=== PATIENT | male | born 1975 | race African-American/Black ===

== ENCOUNTER 2018-07-26 12:42 | Inpatient (IN) | payer OTHER ==
[2018-07-26 13:57] VITALS: BMI 29.2
--- NOTE | 2018-07-26 17:58 | HP ---
"CIWA Score Nausea/Vomitin-Mild Nausea/No Vomiting Muscle Tremors: 4-Moderate,w/Arms Extend Anxiety: 4-Mod. Anxious/Guarded Agitation: 1-Slight > Activity Paroxysmal Sweats: 3 (Increased facial moisture) Orientation: 2-Disoriented Date<2 days Tacttile Disturbances: 0-None Auditory Disturbances: 0-None Visual Disturbances: 0-None Headache: 0-None Present CIWA-Ar Total Score: 15 - Admission Criteria [facility]AS[facility] Guidelines: Admission for Medically Managed Detox: Requires at least one of the followin. CIWA greater than 12 2. Seizures within the past 24 hours 3. Delirium tremens within the past 24 hours 4. Hallucinations within the past 24 hours 5. Acute intervention needed for co occurring medical disorder 6. Acute intervention needed for co occurring psychiatric disorder 7. Severe withdrawal that cannot be handled at a lower level of care (continued vomiting, continued diarrhea, abnormal vital signs) requiring intravenous medication and/or fluids 8. Patient presents the following: CIWA greater than 12 Admission Criteria Met: Admission criteria met Admission ROS [facility] - [facility] Chief Complaint: Alcohol withdrawal. Allergies/Adverse Reactions: Allergies Allergy/AdvReac Type Severity Reaction Status Date / Time shellfish derived Allergy Severe Swelling Verified 07/26/18 16:52 No Known Drug Allergies Allergy Verified 07/26/18 18:48 History of Present Illness: Here for detox from alcohol. Nicotine use began at age 16 - stopped 13 months ago. Alcohol use began at age 16. Cocaine use began at age 16. Marijuana use began at age 16. Hx. Blackouts - last 1 week ago. Denies hx seizures/overdoses. Longest length of sobriety 8 years associated w/ meetings. Hx HTN was on Lisinopril but stopped several months ago, on own. Encouraged to f/u w/ PCP post discharge and share copies of reports form this admission. Intermittent weakness and numbness in both arms and hands for several months. MH: Denies depression, thoughts of harming self or others. Search Terms: [address], 1975 Search Date: 07/26/2018 05:51:36 PM The Drug Utilization Report below displays all of the controlled substance prescriptions, if any, that your patient has filled in the last twelve months. The information displayed on this report is compiled from pharmacy submissions to the Department, and accurately reflects the information as submitted by the pharmacies. This report was requested by: Chen Alvarez | Reference #: [id number] There are no results for the search terms that you entered. Exam Limitations: No Limitations - Ebola screening Have you traveled outside of the country in the last 21 days: No Have you had contact with anyone from an Ebola affected area: No Have you been sick,other than usual withdrawal symptoms: No Do you have a fever: No - Review of Systems Constitutional: Diaphoresis (Increased facial moisture), Changes in sleep ( Difficulty falling and staying asleep w/ nightmares) EENT: reports: No Symptoms Reported Respiratory: reports: No Symptoms reported Cardiac: reports: No Symptoms Reported GI: reports: Nausea, Indigestion (acid reflux - otc rolaids) : reports: No Symptoms Reported Musculoskeletal: reports: No Symptoms Reported Integumentary: reports: Other (athlete's foot) Neuro: reports: Tremors Endocrine: reports: Increased Thirst Hematology: reports: No Symptoms Reported Psychiatric: reports: Judgement Intact, Agitated, Anxious, other (Knows nmoth and year, off date by 3 days) Patient History - Patient Medical History Hx Asthma: No Hx Chronic Obstructive Pulmonary Disease (COPD): No Hx Cardiac Disorders: No Hx Hypertension: Yes (not on meds.) HX Cerebrovascular Accident: No Hx Seizures: No Hx Diabetes: No Hx Gastrointestinal Disorders: No Hx Genitourinary Disorders: No Hx Sexually Transmitted Disorders: No Hx Renal Disease (ESRD): No Hx Human Immunodeficiency Virus (HIV): No (Neg - 2018) Hx Depression: No Hx Suicide Attempt: No Hx Schizophrenia: No - Patient Surgical History Past Surgical History: No - PPD History Previous Implant?: Yes Documented Results: Negative w/o proof Implanted On Prior [facility] Admission?: No PPD to be Administered?: Yes - Smoking Cessation Smoking history: Former smoker Have you smoked in the past 12 months: No If you are a former smoker, when did you quit?: 2018 - Hx Chewing Tobacco Use: No Initiated information on smoking cessation: No - Substance & Tx. History Hx Alcohol Use: Yes Hx Substance Use: Yes Substance Use Type: Alcohol, Cocaine, Marijuana Hx Substance Use Treatment: Yes (detox, rehab) - Substances Abused Alcohol Route: Oral Frequency: Daily Amount used: 1 PINT - 1 LITER VODKA Age of first use: 16 Date of Last Use: 07/26/18 Cocaine Route: Inhalation Frequency: Daily Amount used: $40 Age of first use: 16 Date of Last Use: 07/25/18 Marijuana/Hashish Route: Smoking Frequency: Daily Amount used: $40 Age of first use: 16 Date of Last Use: 07/26/18 Admission Physical Exam [facility] - Vital Signs Vital Signs: Vital Signs - 24 hr 07/26/18 13:55 Temperature 97.6 F Pulse Rate 82 Respiratory 17 Rate Blood Pressure 134/70 - Physical General Appearance: Yes: Mild Distress, Tremorous, Sweating (Increased facial moisture), Anxious HEENTM: Yes: EOMI (Slight jerking of eyes on (R) lateral gaze), Hearing grossly Normal, Normocephalic, Normal Voice, SAURABH, Pharynx Normal, Other (Increased erythema/injection sclera both eyes. Conjunctiva w/o increased erythema. No eye drainage.) Respiratory: Yes: Lungs Clear, Normal Breath Sounds, No Respiratory Distress Neck: Yes: No masses,lesions,Nodules, Supple Breast: Yes: Breast Exam Deferred Cardiology: Yes: Regular Rate, S1, S2 (irregular rhythm) Abdominal: Yes: Non Tender, Soft, Increased Bowel Sounds Back: Yes: Normal Inspection Musculoskeletal: Yes: full range of Motion, Gait Steady Extremities: Yes: Normal Capillary Refill, Tremors (of hands at rest and when arms extend) Neurological: Yes: trim technician II-XII NML intact, Motor Strength 5/5 (BHG strong and equal.), Normal Mood/Affect Integumentary: Yes: Normal Color, Dry, Warm, Diaphoresis (Increased facial moisture), Other (Mottled, flaky, cracked skin on feet. Increased thickening, flaking, and darkened colored toe nails.) Lymphatic: Yes: Within Normal Limits - Diagnostic (1) Alcohol dependence with uncomplicated withdrawal Current Visit: Yes Status: Acute (2) Cocaine dependence, uncomplicated Current Visit: Yes Status: Chronic (3) Cannabis dependence, uncomplicated Current Visit: Yes Status: Chronic (4) HTN (hypertension) Current Visit: Yes Status: Chronic Qualifiers: Hypertension type: unspecified Qualified Code(s): I10 - Essential (primary ) hypertension (5) Tinea pedis Current Visit: Yes Status: Chronic Qualifiers: Laterality: bilateral Qualified Code(s): B35.3 - Tinea pedis Cleared for Admission [facility] - Detox or Rehab [facility] Level of Care: Medically Managed Detox Regimen/Protocol: Librium [facility] Breath Alcohol Content Breath Alcohol Content: 0.076 Urine Drug Screen - Results Drug Screen Negative: No Urine Drug Screen Results: THC-Marijuana, VINITA-Cocaine"
[2018-07-26] MEDS ORDERED: chlordiazePOXIDE HCL 25 MG CAPSULE PO PRN (18:28)
[2018-07-26] MEDS ORDERED: P-EPHED 60MG/TRIPROLIDI 2.5MG TABLET PO PRN (18:28)
[2018-07-26] MEDS ORDERED: MAG HYDROX/AL HYDROX/SIMETH 30 ML UNIT-DOSE CUP PO PRN (18:28)
[2018-07-26] MEDS ORDERED: MAGNESIUM CITRATE 300 ML BOTTLE PO PRN (18:28)
[2018-07-26] MEDS ORDERED: MENTHOL/PHENOL 1 EACH UD MM PRN (18:28)
[2018-07-26] MEDS ORDERED: LOPERAMIDE HCL 2 MG CAPSULE PO PRN (18:28)
[2018-07-26] MEDS ORDERED: IBUPROFEN 400 MG TABLET (FP) PO PRN (18:28)
[2018-07-26] MEDS ORDERED: ACETAMINOPHEN 325 MG TABLET (FP) PO PRN (18:28)
[2018-07-26] MEDS ORDERED: MAGNESIUM HYDROX 2400MG/30ML ORAL SUSPENSION 30 ML CUP PO PRN (18:28)
[2018-07-26] MEDS ORDERED: guaiFENesin 200 MG/10 ML 10 ML UNIT-DOSE CUPS PO PRN (18:29)
[2018-07-26] MEDS ORDERED: chlordiazePOXIDE HCL 25 MG CAPSULE PO ONE (19:15)
[2018-07-26] MEDS: TOLNAFTATE 1% POWDER 45 GM POW TP SCH (22:01)
[2018-07-26] MEDS: THIAMINE HCL 100 MG TABLET (FP) PO SCH (22:07)
[2018-07-26] MEDS: chlordiazePOXIDE HCL 25 MG CAPSULE PO SCH (22:07)
[2018-07-27] MEDS: chlordiazePOXIDE HCL 25 MG CAPSULE PO SCH ×4 (06:52→22:34)
[2018-07-27] MEDS: PRENATAL VITAMINS W/ FOLIC ACID TABLET (FP) PO SCH (10:50)
[2018-07-27] MEDS: TOLNAFTATE 1% POWDER 45 GM POW TP SCH ×2 (10:51→22:33)
[2018-07-27 11:47] LABS: HEMATOCRIT 40.4 % (35.4-49); HEMOGLOBIN 13.5 GM/dL (11.7-16.9); MCH 31.5 pg (25.7-33.7); MCHC 33.4 g/dl (32.0-35.9); MEAN CELL VOLUME 94.3 fl (80-96); MEAN PLT VOLUME 8.1 fl (7.5-11.1); PLATELET COUNT 245 K/MM3 (134-434); RBC 4.28 M/mm3 (4.00-5.60); WHITE BLOOD COUNT 5.6 K/mm3 (4.0-10.0)
[2018-07-27 11:58] LABS: ALBUMIN 3.4 g/dl (3.4-5.0); ALK PHOS 67 U/L (45-117); ANION GAP 7 MMOL/L (8-16); BILIRUBIN,TOTAL 0.2 mg/dL (0.2-1); BLOOD UREA NITROGEN 14 mg/dL (7-18); CALCIUM 8.7 mg/dL (8.5-10.1); CHLORIDE 106 mmol/L (98-107); CO2 27 mmol/L (21-32); CREATININE 1.2 mg/dL (0.55-1.3); GLUCOSE,RANDOM 95 mg/dL (74-106); POTASSIUM 4.3 mmol/L (3.5-5.1); SGOT/AST 16 U/L (15-37); SGPT/ALT 23 U/L (13-61); SODIUM 140 mmol/L (136-145); TOT PROT 6.2 g/dl (6.4-8.2)
--- NOTE | 2018-07-27 16:16 | PN ---
S CIWA - CIWA Score Nausea/Vomitin Muscle Tremors: 3 Anxiety: 0-No Anxiety, at Ease Agitation: 0-Normal Activity Paroxysmal Sweats: 3 Orientation: 0-Oriented Tacttile Disturbances: 2-Mild Itch/Numbness/Burn Auditory Disturbances: 0-None Visual Disturbances: 2-Mild Sensitivity Headache: 0-None Present CIWA-Ar Total Score: 13 BHS Progress Note (SOAP) Subjective: Interrupted Sleep, Sweating, Nausea, Body Aches, Tremors, Diarrhea. Objective: PATIENT A & O X 3. IN NO ACUTE DISTRESS. 07/27/18 16:15 Vital Signs Temperature 97.3 F L 07/27/18 13:15 Pulse Rate 82 07/27/18 13:15 Respiratory Rate 18 07/27/18 13:15 Blood Pressure 112/66 07/27/18 13:15 O2 Sat by Pulse Oximetry (%) Laboratory Tests 07/27/18 07/27/18 07/27/18 07:00 07:00 07:00 WBC 5.6 RBC 4.28 Hgb 13.5 Hct 40.4 MCV 94.3 MCH 31.5 MCHC 33.4 RDW 14.0 Plt Count 245 MPV 8.1 Sodium 140 Potassium 4.3 Chloride 106 Carbon Dioxide 27 Anion Gap 7 L BUN 14 Creatinine 1.2 Creat Clearance w eGFR > 60 Random Glucose 95 Calcium 8.7 Total Bilirubin 0.2 AST 16 ALT 23 Alkaline Phosphatase 67 Total Protein 6.2 L Albumin 3.4 HIV 1&2 Antibody Screen Negative HIV P24 Antigen Negative 07/27/18 16:15 LABS NOTED. RPR RESULT PENDING. Assessment: 07/27/18 16:16 WITHDRAWAL SYMPTOMS. Plan: CONTINUE DETOX. INCREASE DAILY PO FLUID INTAKE. PRN IMMODIUM FOR DIARRHEA.
--- NOTE | 2018-07-27 18:19 | EKG ---
Test Reason : Blood Pressure : / mmHG Vent. Rate : 082 BPM Atrial Rate : 082 BPM P-R Int : 144 ms QRS Dur : 094 ms QT Int : 368 ms P-R-T Axes : 062 027 012 degrees QTc Int : 429 ms NORMAL SINUS RHYTHM NORMAL ECG NO PREVIOUS ECGS AVAILABLE Confirmed by MD DEBOARH, BIJAN ([id number]) on 07/27/2018 6:18:49 PM Referred By: Confirmed By:BIJAN CABRERA MD
[2018-07-27] MEDS: THIAMINE HCL 100 MG TABLET (FP) PO SCH (22:33)
[2018-07-27 23:15] LABS: URINE APPEARANCE CLEAR; URINE BILIRUBIN NEGATIVE (<2.0 mg/dL); URINE COLOR LTYELLOW; URINE GLUCOSE (UA) NEGATIVE (NEGATIVE); URINE KETONE NEGATIVE (NEGATIVE); URINE LEUK ESTERASE NEGATIVE (NEGATIVE); URINE NITRITE NEGATIVE (NEGATIVE); URINE PROTEIN NEGATIVE (NEGATIVE); URINE UROBILINOGEN NEGATIVE mg/dL (0.2-1.0)
[2018-07-28] MEDS: chlordiazePOXIDE HCL 25 MG CAPSULE PO SCH ×3 (05:03→17:16)
[2018-07-28] MEDS: TOLNAFTATE 1% POWDER 45 GM POW TP SCH ×2 (10:12→22:19)
[2018-07-28] MEDS: PRENATAL VITAMINS W/ FOLIC ACID TABLET (FP) PO SCH (10:12)
--- NOTE | 2018-07-28 14:20 | PN ---
S CIWA - CIWA Score Nausea/Vomitin-Mild Nausea/No Vomiting Muscle Tremors: 2 Anxiety: 1-Mildly Anxious Agitation: 1-Slight > Activity Paroxysmal Sweats: 1-Minimal Palms Moist Orientation: 1-Uncertain about Date Tacttile Disturbances: 0-None Auditory Disturbances: 0-None Visual Disturbances: 0-None Headache: 2-Mild CIWA-Ar Total Score: 9 BHS Progress Note (SOAP) Subjective: tremor sweating restlessness Objective: 07/28/18 14:20 Vital Signs Temperature 97.2 F L 07/28/18 13:51 Pulse Rate 82 07/28/18 13:51 Respiratory Rate 18 07/28/18 13:51 Blood Pressure 125/80 07/28/18 13:51 O2 Sat by Pulse Oximetry (%) Laboratory Last Values WBC 5.6 K/mm3 (4.0-10.0) 07/27/18 07:00 RBC 4.28 M/mm3 (4.00-5.60) 07/27/18 07:00 Hgb 13.5 GM/dL (11.7-16.9) 07/27/18 07:00 Hct 40.4 % (35.4-49) 07/27/18 07:00 MCV 94.3 fl (80-96) 07/27/18 07:00 MCH 31.5 pg (25.7-33.7) 07/27/18 07:00 MCHC 33.4 g/dl (32.0-35.9) 07/27/18 07:00 RDW 14.0 % (11.9-15.9) 07/27/18 07:00 Plt Count 245 K/MM3 (134-434) 07/27/18 07:00 MPV 8.1 fl (7.5-11.1) 07/27/18 07:00 Sodium 140 mmol/L (136-145) 07/27/18 07:00 Potassium 4.3 mmol/L (3.5-5.1) 07/27/18 07:00 Chloride 106 mmol/L (98-107) 07/27/18 07:00 Carbon Dioxide 27 mmol/L (21-32) 07/27/18 07:00 Anion Gap 7 MMOL/L (8-16) L 07/27/18 07:00 BUN 14 mg/dL (7-18) 07/27/18 07:00 Creatinine 1.2 mg/dL (0.55-1.3) 07/27/18 07:00 Creat Clearance w eGFR > 60 (>60) 07/27/18 07:00 Random Glucose 95 mg/dL (74-106) 07/27/18 07:00 Calcium 8.7 mg/dL (8.5-10.1) 07/27/18 07:00 Total Bilirubin 0.2 mg/dL (0.2-1) 07/27/18 07:00 AST 16 U/L (15-37) 07/27/18 07:00 ALT 23 U/L (13-61) 07/27/18 07:00 Alkaline Phosphatase 67 U/L (45-117) 07/27/18 07:00 Total Protein 6.2 g/dl (6.4-8.2) L 07/27/18 07:00 Albumin 3.4 g/dl (3.4-5.0) 07/27/18 07:00 Urine Color Ltyellow 07/27/18 17:27 Urine Appearance Clear 07/27/18 17:27 Urine pH 6.0 (5.0-8.0) 07/27/18 17:27 Ur Specific [place] 1.016 (1.010-1.035) 07/27/18 17:27 Urine Protein Negative (NEGATIVE) 07/27/18 17:27 Urine Glucose (UA) Negative (NEGATIVE) 07/27/18 17:27 Urine Ketones Negative (NEGATIVE) 07/27/18 17:27 Urine Blood Negative (NEGATIVE) 07/27/18 17:27 Urine Nitrite Negative (NEGATIVE) 07/27/18 17:27 Urine Bilirubin Negative (<2.0 mg/dL) 07/27/18 17:27 Urine Urobilinogen Negative mg/dL (0.2-1.0) 07/27/18 17:27 Ur Leukocyte Esterase Negative (NEGATIVE) 07/27/18 17:27 RPR Titer Nonreactive (NONREACTIVE) 07/27/18 07:00 HIV 1&2 Antibody Screen Negative 07/27/18 07:00 HIV P24 Antigen Negative 07/27/18 07:00 lab noted Assessment: 07/28/18 14:24 withdrawal sx Plan: continue detox
[2018-07-28] MEDS: THIAMINE HCL 100 MG TABLET (FP) PO SCH (22:18)
[2018-07-28] MEDS: chlordiazePOXIDE 5 MG CAPSULE PO SCH (22:18)
[2018-07-28] MEDS: MELATONIN 5 MG TABLETS PO PRN (22:19)
[2018-07-29] MEDS: chlordiazePOXIDE 5 MG CAPSULE PO SCH ×3 (06:20→17:20)
[2018-07-29] MEDS: TOLNAFTATE 1% POWDER 45 GM POW TP SCH ×2 (10:35→22:07)
[2018-07-29] MEDS: PRENATAL VITAMINS W/ FOLIC ACID TABLET (FP) PO SCH (10:35)
--- NOTE | 2018-07-29 11:04 | PN ---
BHS Progress Note (SOAP) Subjective: feeling better less sweating sleep better at night mild tremor Objective: 07/29/18 11:03 Vital Signs Temperature 98.3 F 07/29/18 09:14 Pulse Rate 77 07/29/18 09:14 Respiratory Rate 18 07/29/18 09:14 Blood Pressure 123/69 07/29/18 09:14 O2 Sat by Pulse Oximetry (%) Laboratory Last Values WBC 5.6 K/mm3 (4.0-10.0) 07/27/18 07:00 RBC 4.28 M/mm3 (4.00-5.60) 07/27/18 07:00 Hgb 13.5 GM/dL (11.7-16.9) 07/27/18 07:00 Hct 40.4 % (35.4-49) 07/27/18 07:00 MCV 94.3 fl (80-96) 07/27/18 07:00 MCH 31.5 pg (25.7-33.7) 07/27/18 07:00 MCHC 33.4 g/dl (32.0-35.9) 07/27/18 07:00 RDW 14.0 % (11.9-15.9) 07/27/18 07:00 Plt Count 245 K/MM3 (134-434) 07/27/18 07:00 MPV 8.1 fl (7.5-11.1) 07/27/18 07:00 Sodium 140 mmol/L (136-145) 07/27/18 07:00 Potassium 4.3 mmol/L (3.5-5.1) 07/27/18 07:00 Chloride 106 mmol/L (98-107) 07/27/18 07:00 Carbon Dioxide 27 mmol/L (21-32) 07/27/18 07:00 Anion Gap 7 MMOL/L (8-16) L 07/27/18 07:00 BUN 14 mg/dL (7-18) 07/27/18 07:00 Creatinine 1.2 mg/dL (0.55-1.3) 07/27/18 07:00 Creat Clearance w eGFR > 60 (>60) 07/27/18 07:00 Random Glucose 95 mg/dL (74-106) 07/27/18 07:00 Calcium 8.7 mg/dL (8.5-10.1) 07/27/18 07:00 Total Bilirubin 0.2 mg/dL (0.2-1) 07/27/18 07:00 AST 16 U/L (15-37) 07/27/18 07:00 ALT 23 U/L (13-61) 07/27/18 07:00 Alkaline Phosphatase 67 U/L (45-117) 07/27/18 07:00 Total Protein 6.2 g/dl (6.4-8.2) L 07/27/18 07:00 Albumin 3.4 g/dl (3.4-5.0) 07/27/18 07:00 Urine Color Ltyellow 07/27/18 17:27 Urine Appearance Clear 07/27/18 17:27 Urine pH 6.0 (5.0-8.0) 07/27/18 17:27 Ur Specific [place] 1.016 (1.010-1.035) 07/27/18 17:27 Urine Protein Negative (NEGATIVE) 07/27/18 17:27 Urine Glucose (UA) Negative (NEGATIVE) 07/27/18 17:27 Urine Ketones Negative (NEGATIVE) 07/27/18 17:27 Urine Blood Negative (NEGATIVE) 07/27/18 17:27 Urine Nitrite Negative (NEGATIVE) 07/27/18 17:27 Urine Bilirubin Negative (<2.0 mg/dL) 07/27/18 17:27 Urine Urobilinogen Negative mg/dL (0.2-1.0) 07/27/18 17:27 Ur Leukocyte Esterase Negative (NEGATIVE) 07/27/18 17:27 RPR Titer Nonreactive (NONREACTIVE) 07/27/18 07:00 HIV 1&2 Antibody Screen Negative 07/27/18 07:00 HIV P24 Antigen Negative 07/27/18 07:00 lab notedf Assessment: 07/29/18 11:03 mild withdrawal sx Plan: continue detox
[2018-07-29] MEDS: chlordiazePOXIDE HCL 10 MG CAPSULE PO SCH (22:06)
[2018-07-29] MEDS: THIAMINE HCL 100 MG TABLET (FP) PO SCH (22:06)
[2018-07-29] MEDS: MELATONIN 5 MG TABLETS PO PRN (22:07)
[2018-07-30] MEDS: chlordiazePOXIDE HCL 10 MG CAPSULE PO SCH (05:31)
[2018-07-30] MEDS: TOLNAFTATE 1% POWDER 45 GM POW TP SCH (10:23)
[2018-07-30] MEDS: PRENATAL VITAMINS W/ FOLIC ACID TABLET (FP) PO SCH (10:23)
[2018-07-30 13:23] VITALS: BP 124/62; PULSE 74; TEMP 97.2
--- NOTE | 2018-07-30 19:31 | DS ---
[facility] Detox Discharge Summary Admission Date: 07/26/18 Discharge Date: 07/30/18 - History Present History: Alcohol Dependence, Cannabis Dependence, Cocaine Dependence Additional Comments: PATIENT GOING TO [facility] ([place], [place] ) FOR AFTERCARE. PATIENT WAS DISCHARGED FROM DETOX UNIT IN STABLE MEDICAL CONDITION. Pertinent Past History: HTN, Tinea Pedis. - Physical Exam Results Vital Signs: Vital Signs Temperature 97.2 F L 07/30/18 13:23 Pulse Rate 74 07/30/18 13:23 Respiratory Rate 18 07/30/18 13:23 Blood Pressure 124/62 07/30/18 13:23 O2 Sat by Pulse Oximetry (%) Pertinent Admission Physical Exam Findings: WITHDRAWAL SYMPTOMS. Laboratory Tests 07/27/18 07/27/18 07/27/18 07:00 07:00 07:00 WBC 5.6 RBC 4.28 Hgb 13.5 Hct 40.4 MCV 94.3 MCH 31.5 MCHC 33.4 RDW 14.0 Plt Count 245 MPV 8.1 Sodium 140 Potassium 4.3 Chloride 106 Carbon Dioxide 27 Anion Gap 7 L BUN 14 Creatinine 1.2 Creat Clearance w eGFR > 60 Random Glucose 95 Calcium 8.7 Total Bilirubin 0.2 AST 16 ALT 23 Alkaline Phosphatase 67 Total Protein 6.2 L Albumin 3.4 Urine Color Urine Appearance Urine pH Ur Specific [place] Urine Protein Urine Glucose (UA) Urine Ketones Urine Blood Urine Nitrite Urine Bilirubin Urine Urobilinogen Ur Leukocyte Esterase RPR Titer HIV 1&2 Antibody Screen Negative HIV P24 Antigen Negative 07/27/18 07/27/18 07:00 17:27 WBC RBC Hgb Hct MCV MCH MCHC RDW Plt Count MPV Sodium Potassium Chloride Carbon Dioxide Anion Gap BUN Creatinine Creat Clearance w eGFR Random Glucose Calcium Total Bilirubin AST ALT Alkaline Phosphatase Total Protein Albumin Urine Color Ltyellow Urine Appearance Clear Urine pH 6.0 Ur Specific [place] 1.016 Urine Protein Negative Urine Glucose (UA) Negative Urine Ketones Negative Urine Blood Negative Urine Nitrite Negative Urine Bilirubin Negative Urine Urobilinogen Negative Ur Leukocyte Esterase Negative RPR Titer Nonreactive HIV 1&2 Antibody Screen HIV P24 Antigen LABS NOTED. - Treatment Hospital Course: Detox Protocol Followed, Detoxed Safely, Responded well, Discharged Condition Good, Rehab Referral Accepted Patient has Accepted a Rehab Referral to: [facility] ([place], [place]). - Medication Discharge Medications: Ambulatory Orders NK [No Known Home Medication] 07/26/18 - Diagnosis (1) Alcohol dependence with uncomplicated withdrawal Status: Acute (2) Cannabis dependence, uncomplicated Status: Chronic (3) Cocaine dependence, uncomplicated Status: Chronic (4) HTN (hypertension) Status: Chronic Qualifiers: Hypertension type: unspecified Qualified Code(s): I10 - Essential (primary ) hypertension (5) Tinea pedis Status: Chronic Qualifiers: Laterality: bilateral Qualified Code(s): B35.3 - Tinea pedis - AMA Did Patient Leave Against Medical Advice: No
== END 2018-07-30 01:23 | disposition other institution (70) | DRG 774 ==
LOC: YASAS 12:42 → Y3N 17:58
PROVIDERS: ADMIT Neuromusculoskeletal Medicine & OMM; ATTEND Neuromusculoskeletal Medicine & OMM
PROC: HZ2ZZZZ Detoxification Services for Substance Abuse Treatment (ICD-10-PCS; principal; 2018-07-26)
DX: F10.230 Alcohol dependence with withdrawal, uncomplicated (principal); F14.20 Cocaine dependence, uncomplicated; F12.20 Cannabis dependence, uncomplicated; I10 Essential (primary) hypertension; B35.3 Tinea pedis; Z87.891 Personal history of nicotine dependence; Z91.013 Allergy to seafood
CPT/HCPCS: 36415; 80053; 81003; 85027; 86593; 87389; 93005; 93010

== ENCOUNTER 2020-08-06 08:45 | Inpatient (IN) | payer OTHER ==
[2020-08-06 09:54] VITALS: BMI 24.5
[2020-08-06] MEDS ORDERED: ACETAMINOPHEN 325 MG TABLET (FP) PO PRN ×2 (10:23)
[2020-08-06] MEDS ORDERED: IBUPROFEN 400 MG TABLET (FP) PO PRN (10:23)
[2020-08-06] MEDS ORDERED: MAG HYDROX/AL HYDROX/SIMETH 30 ML UNIT-DOSE CUP PO PRN (10:23)
[2020-08-06] MEDS ORDERED: chlordiazePOXIDE HCL 25 MG CAPSULE PO PRN (10:23)
[2020-08-06] MEDS ORDERED: NICOTINE POLACRILEX 2 MG GUM BUC PRN (10:23)
[2020-08-06] MEDS ORDERED: MENTHOL/PHENOL 1 EACH UD MM PRN (10:23)
[2020-08-06] MEDS ORDERED: MAGNESIUM CITRATE 300 ML BOTTLE PO PRN (10:23)
[2020-08-06] MEDS ORDERED: MAGNESIUM HYDROX 2400MG/30ML ORAL SUSPENSION 30 ML CUP PO PRN (10:23)
[2020-08-06] MEDS ORDERED: ONDANSETRON *ODT* 4 MG TABLET SL PRN (10:23)
[2020-08-06] MEDS ORDERED: METHOCARBAMOL 500 MG TABLET PO PRN (10:23)
[2020-08-06] MEDS ORDERED: BISMUTH SUBSALICYLATE 262 MG/15 ML BTL PO PRN (10:23)
[2020-08-06] MEDS: chlordiazePOXIDE HCL 25 MG CAPSULE PO SCH ×3 (12:31→22:52)
[2020-08-06] MEDS: PRENATAL VITAMINS W/ FOLIC ACID TABLET (FP) PO SCH (12:31)
[2020-08-06] MEDS: hydrOXYzine PAMOATE 25 MG CAPSULE (FP) PO SCH ×3 (14:29→22:53)
[2020-08-06 15:43] LABS: HEMATOCRIT 38.7 % (35.4-49); HEMOGLOBIN 12.8 GM/dL (11.7-16.9); MCH 31.8 pg (25.7-33.7); MCHC 33.1 g/dl (32.0-35.9); MEAN CELL VOLUME 95.9 fl (80-96); MEAN PLT VOLUME 7.9 fl (7.5-11.1); PLATELET COUNT 302 K/MM3 (134-434); RBC 4.03 M/mm3 (4.00-5.60); RDW 14.6 % (11.9-15.9); WHITE BLOOD COUNT 4.7 K/mm3 (4.0-10.0)
[2020-08-06 15:55] LABS: ALBUMIN 3.5 g/dl (3.4-5.0); BLOOD UREA NITROGEN 16.4 mg/dL (7-18)
[2020-08-06 15:57] LABS: CREATININE 1.2 mg/dL (0.55-1.3)
[2020-08-06 15:59] LABS: BILIRUBIN,TOTAL 0.3 mg/dL (0.2-1); TOT PROT 6.4 g/dl (6.4-8.2)
[2020-08-06] MEDS: MELATONIN 5 MG TABLETS PO SCH (22:53)
[2020-08-06] MEDS: THIAMINE HCL 100 MG TABLET (FP) PO SCH (22:53)
[2020-08-07] MEDS: chlordiazePOXIDE HCL 25 MG CAPSULE PO SCH ×4 (05:57→22:50)
[2020-08-07] MEDS: hydrOXYzine PAMOATE 25 MG CAPSULE (FP) PO SCH ×5 (05:58→22:51)
[2020-08-07] MEDS: PRENATAL VITAMINS W/ FOLIC ACID TABLET (FP) PO SCH (10:37)
[2020-08-07] MEDS: THIAMINE HCL 100 MG TABLET (FP) PO SCH (22:51)
[2020-08-07] MEDS: MELATONIN 5 MG TABLETS PO SCH (22:52)
[2020-08-08] MEDS: chlordiazePOXIDE HCL 25 MG CAPSULE PO SCH ×2 (06:40→10:16)
[2020-08-08] MEDS: hydrOXYzine PAMOATE 25 MG CAPSULE (FP) PO SCH ×3 (07:20→13:52)
[2020-08-08] MEDS: PRENATAL VITAMINS W/ FOLIC ACID TABLET (FP) PO SCH (10:17)
[2020-08-08 13:23] VITALS: BP 116/53; PULSE 69; TEMP 98.1
[2020-08-09] MEDS ORDERED: chlordiazePOXIDE HCL 10 MG CAPSULE PO PRN
[2020-08-09] MEDS ORDERED: chlordiazePOXIDE HCL 10 MG CAPSULE PO SCH (05:00)
[2020-08-10] MEDS ORDERED: chlordiazePOXIDE HCL 10 MG CAPSULE PO SCH (05:00)
[2020-08-11] MEDS ORDERED: chlordiazePOXIDE HCL 10 MG CAPSULE PO ONE (05:00)
== END 2020-08-08 14:50 | disposition left against medical advice (07) | DRG 770 ==
LOC: YASAS 08:45 → Y6N 10:51
PROVIDERS: ADMIT Allergy & Immunology; ATTEND Allergy & Immunology
PROC: HZ2ZZZZ Detoxification Services for Substance Abuse Treatment (ICD-10-PCS; principal; 2020-08-06)
DX: F10.230 Alcohol dependence with withdrawal, uncomplicated (principal); F11.20 Opioid dependence, uncomplicated; F14.20 Cocaine dependence, uncomplicated; F12.20 Cannabis dependence, uncomplicated; F17.210 Nicotine dependence, cigarettes, uncomplicated; F31.9 Bipolar disorder, unspecified; I10 Essential (primary) hypertension; M41.9 Scoliosis, unspecified; B35.3 Tinea pedis; Z91.013 Allergy to seafood; Z56.0 Unemployment, unspecified; Z59.0 Homelessness
CPT/HCPCS: 36415; 80053; 82962; 85027; 86593; 86780; 87389; C9803; Q0162; U0003

== ENCOUNTER 2020-09-20 10:45 | Inpatient (IN) | payer OTHER ==
[2020-09-20 12:28] VITALS: BMI 24.7
[2020-09-20] MEDS ORDERED: MENTHOL/PHENOL 1 EACH UD MM PRN (12:47)
[2020-09-20] MEDS ORDERED: MAGNESIUM CITRATE 300 ML BOTTLE PO PRN (12:47)
[2020-09-20] MEDS ORDERED: NICOTINE POLACRILEX 2 MG GUM BUC PRN (12:47)
[2020-09-20] MEDS ORDERED: MAGNESIUM HYDROX 2400MG/30ML ORAL SUSPENSION 30 ML CUP PO PRN (12:47)
[2020-09-20] MEDS ORDERED: BISMUTH SUBSALICYLATE 262 MG/15 ML BTL PO PRN (12:47)
[2020-09-20] MEDS ORDERED: chlordiazePOXIDE HCL 25 MG CAPSULE PO PRN (12:47)
[2020-09-20] MEDS ORDERED: MAG HYDROX/AL HYDROX/SIMETH 30 ML UNIT-DOSE CUP PO PRN (12:47)
[2020-09-20] MEDS ORDERED: IBUPROFEN 400 MG TABLET (FP) PO PRN (12:47)
[2020-09-20] MEDS ORDERED: METHOCARBAMOL 500 MG TABLET PO PRN (12:47)
[2020-09-20] MEDS ORDERED: ACETAMINOPHEN 325 MG TABLET (FP) PO PRN ×2 (12:47)
[2020-09-20] MEDS ORDERED: ONDANSETRON *ODT* 4 MG TABLET SL PRN (12:47)
[2020-09-20] MEDS: hydrOXYzine PAMOATE 25 MG CAPSULE (FP) PO SCH ×3 (13:59→23:17)
[2020-09-20] MEDS: PRENATAL VITAMINS W/ FOLIC ACID TABLET (FP) PO SCH (13:59)
[2020-09-20] MEDS: NICOTINE 21 MG/24 HOURS TOPICAL PATCH TD SCH (14:00)
[2020-09-20 16:25] LABS: HEMATOCRIT 41.1 % (35.4-49); HEMOGLOBIN 13.8 GM/dL (11.7-16.9); MCH 31.5 pg (25.7-33.7); MCHC 33.5 g/dl (32.0-35.9); MEAN PLT VOLUME 8.3 fl (7.5-11.1); PLATELET COUNT 304 K/MM3 (134-434); RBC 4.37 M/mm3 (4.00-5.60); RDW 14.2 % (11.9-15.9); WHITE BLOOD COUNT 7.4 K/mm3 (4.0-10.0)
[2020-09-20 17:02] LABS: POTASSIUM 3.5 mmol/L (3.5-5.1)
[2020-09-20 17:04] LABS: CALCIUM 9.3 mg/dL (8.5-10.1)
[2020-09-20 17:08] LABS: CREATININE 1.2 mg/dL (0.55-1.3)
[2020-09-20 17:10] LABS: BILIRUBIN,TOTAL 0.3 mg/dL (0.2-1); TOT PROT 7.3 g/dl (6.4-8.2)
[2020-09-20] MEDS: chlordiazePOXIDE HCL 25 MG CAPSULE PO SCH ×2 (18:30→23:16)
[2020-09-20] MEDS: MELATONIN 5 MG TABLETS PO SCH (23:16)
[2020-09-20] MEDS: THIAMINE HCL 100 MG TABLET (FP) PO SCH (23:17)
[2020-09-20] MEDS: QUEtiapine FUMARATE 100 MG TABLET (FP) PO SCH (23:17)
[2020-09-21] MEDS: chlordiazePOXIDE HCL 25 MG CAPSULE PO SCH ×4 (05:36→22:37)
[2020-09-21] MEDS: hydrOXYzine PAMOATE 25 MG CAPSULE (FP) PO SCH ×5 (07:06→22:39)
[2020-09-21] MEDS: LISINOPRIL 10 MG TABLET PO SCH (10:22)
[2020-09-21] MEDS: NICOTINE 21 MG/24 HOURS TOPICAL PATCH TD SCH (10:23)
[2020-09-21] MEDS: PRENATAL VITAMINS W/ FOLIC ACID TABLET (FP) PO SCH (11:09)
[2020-09-21] MEDS: THIAMINE HCL 100 MG TABLET (FP) PO SCH (22:37)
[2020-09-21] MEDS: QUEtiapine FUMARATE 100 MG TABLET (FP) PO SCH (22:37)
[2020-09-21] MEDS: MELATONIN 5 MG TABLETS PO SCH (22:37)
[2020-09-22] MEDS: hydrOXYzine PAMOATE 25 MG CAPSULE (FP) PO SCH ×5 (07:15→22:29)
[2020-09-22] MEDS: chlordiazePOXIDE HCL 25 MG CAPSULE PO SCH ×4 (07:16→22:28)
[2020-09-22] MEDS: PRENATAL VITAMINS W/ FOLIC ACID TABLET (FP) PO SCH (11:17)
[2020-09-22] MEDS: NICOTINE 21 MG/24 HOURS TOPICAL PATCH TD SCH (11:17)
[2020-09-22] MEDS: LISINOPRIL 10 MG TABLET PO SCH (11:17)
[2020-09-22 11:24] LABS: POTASSIUM 3.7 mmol/L (3.5-5.1)
[2020-09-22 11:36] LABS: CALCIUM 9.1 mg/dL (8.5-10.1)
[2020-09-22 11:37] LABS: ALBUMIN 3.3 g/dl (3.4-5.0); BLOOD UREA NITROGEN 12.8 mg/dL (7-18)
[2020-09-22 11:41] LABS: BILIRUBIN,TOTAL 0.3 mg/dL (0.2-1); TOT PROT 6.1 g/dl (6.4-8.2)
[2020-09-22] MEDS: QUEtiapine FUMARATE 100 MG TABLET (FP) PO SCH (22:27)
[2020-09-22] MEDS: THIAMINE HCL 100 MG TABLET (FP) PO SCH (22:27)
[2020-09-22] MEDS: MELATONIN 5 MG TABLETS PO SCH (22:28)
[2020-09-23] MEDS ORDERED: chlordiazePOXIDE HCL 10 MG CAPSULE PO PRN
[2020-09-23] MEDS: hydrOXYzine PAMOATE 25 MG CAPSULE (FP) PO SCH ×3 (06:35→15:04)
[2020-09-23] MEDS: chlordiazePOXIDE HCL 10 MG CAPSULE PO SCH ×2 (06:35→10:24)
[2020-09-23] MEDS: NICOTINE 21 MG/24 HOURS TOPICAL PATCH TD SCH (10:23)
[2020-09-23] MEDS: LISINOPRIL 10 MG TABLET PO SCH (10:24)
[2020-09-23] MEDS: PRENATAL VITAMINS W/ FOLIC ACID TABLET (FP) PO SCH (10:24)
[2020-09-23 14:11] VITALS: BP 142/59; PULSE 76; TEMP 97.8
[2020-09-24] MEDS ORDERED: chlordiazePOXIDE HCL 10 MG CAPSULE PO SCH (05:00)
[2020-09-25] MEDS ORDERED: chlordiazePOXIDE HCL 10 MG CAPSULE PO ONE (05:00)
== END 2020-09-23 16:18 | disposition home or self-care (01) | DRG 773 ==
LOC: YASAS 10:45 → Y6N 12:30
PROVIDERS: ADMIT Allergy & Immunology; ATTEND Allergy & Immunology
PROC: HZ2ZZZZ Detoxification Services for Substance Abuse Treatment (ICD-10-PCS; principal; 2020-09-20)
DX: F10.230 Alcohol dependence with withdrawal, uncomplicated (principal); F11.10 Opioid abuse, uncomplicated; F14.20 Cocaine dependence, uncomplicated; F12.20 Cannabis dependence, uncomplicated; F17.210 Nicotine dependence, cigarettes, uncomplicated; F19.282 Other psychoactive substance dependence with psychoactive substance-induced sleep disorder; F19.24 Other psychoactive substance dependence with psychoactive substance-induced mood disorder; A53.0 Latent syphilis, unspecified as early or late; M41.9 Scoliosis, unspecified; I10 Essential (primary) hypertension; Z56.0 Unemployment, unspecified; Z59.0 Homelessness; Z91.013 Allergy to seafood
CPT/HCPCS: 36415; 80053; 85027; 86593; 86780; C9803; U0003